=== PATIENT | male | born 1995 | race Two or more races ===

== ENCOUNTER 2017-07-04 16:52 | Emergency (ER) | payer OTHER ==
[~2017-07-04] VITALS: Ht 177.8 cm; Wt 105.6 kg
[2017-07-04 17:10] VITALS: BP 119/77
[2017-07-04] MEDS ORDERED: KETOROLAC 30 MG/1 ML IM ONE (18:30)
[2017-07-04] MEDS ORDERED: METHOCARBAMOL 750 MG TABLET PO ONE (18:30)
[2017-07-04] MEDS ORDERED: KETOROLAC 30 MG/1 ML ONE (18:39)
[2017-07-04] MEDS ORDERED: METHOCARBAMOL 750 MG TABLET ONE (18:39)
== END 2017-07-04 18:57 | disposition home or self-care (01) ==
LOC: ED 18:50
DX: S39.012A Strain of muscle, fascia and tendon of lower back, initial encounter (principal); M54.42 Lumbago with sciatica, left side; X58.XXXA Exposure to other specified factors, initial encounter; Y93.89 Activity, other specified; Y92.89 Other specified places as the place of occurrence of the external cause; Y99.8 Other external cause status
CPT/HCPCS: 72110; 96372; 99284; J1885

== ENCOUNTER 2018-04-22 21:26 | Emergency (ER) | payer SELFPAY ==
[~2018-04-22] VITALS: Ht 177.8 cm; Wt 100.0 kg
[2018-04-22] MEDS ORDERED: ONDANSETRON ODT 4 MG PO ONE (21:30)
[2018-04-22] MEDS ORDERED: THIAMINE 100MG TABLET PO ONE (21:30)
[2018-04-22] MEDS ORDERED: SODIUM CHLORIDE 0.9% 1,000ML IVBOLUS ONE (21:30)
[2018-04-22] MEDS ORDERED: IBUP-1222 PO (21:40)
[2018-04-22] MEDS ORDERED: THIAMINE 100MG TABLET ONE (21:42)
[2018-04-22] MEDS ORDERED: ONDANSETRON ODT 4 MG ONE (21:43)
[2018-04-22 21:44] LABS: BASOPHILS # (AUTO) 0.04 x10^3/uL (0-0.1); BASOPHILS % (AUTO) 0 % (0-1); EOSINOPHILS # (AUTO) 0.08 x10^3/uL (0-0.4); EOSINOPHILS % (AUTO) 1 % (1-7); LYMPHOCYTES # (AUTO) 1.81 x10^3/uL (1-3.4); LYMPHOCYTES % (AUTO) 20 % (22-44); MD NO; MEAN CORPUSCULAR HEMOGLOBIN 29.9 pg (27.5-34.5); MEAN CORPUSCULAR HGB CONC 33.8 g/dL (33.2-36.2); MEAN CORPUSCULAR VOLUME 88.3 fL (81-97); MEAN PLATELET VOLUME 9.4 fL (7.4-10.4); MONOCYTES # (AUTO) 0.19 x10^3/uL (0.2-0.8); MONOCYTES % (AUTO) 2 % (2-9); NEUTROPHILS # (AUTO) 7.04 x10^3/uL (1.8-6.8); NEUTROPHILS % (AUTO) 77 % (42-75); PLATELET COUNT 200 x10^3/uL (130-400); RED BLOOD COUNT 4.76 x10^6/uL (4.38-5.82); RED CELL DISTRIBUTION WIDTH 13.5 % (9.4-14.8)
[2018-04-22 21:52] LABS: ALBUMIN 3.5 g/dL (3.4-5.0); ANION GAP 11 mmol/L (5-15); CALCIUM 7.7 mg/dL (8.5-10.1); CHLORIDE 110 mmol/L (98-107); CREATININE 0.71 mg/dL (0.7-1.3)
[2018-04-22 22:39] VITALS: BP 111/72
== END 2018-04-22 22:47 | disposition home or self-care (01) ==
LOC: ED 22:42
DX: F10.220 Alcohol dependence with intoxication, uncomplicated (principal); F17.210 Nicotine dependence, cigarettes, uncomplicated
CPT/HCPCS: 36415; 80048; 80307; 82040; 85025; 99284; J7030; Q0162

== ENCOUNTER 2018-12-30 02:22 | Emergency (ER) | payer OTHER ==
[~2018-12-30] VITALS: Ht 180.3 cm; Wt 105.0 kg
[~2018-12-30 02:22] MED LIST: IBUP-1222 PO
--- NOTE | 2018-12-30 02:45 | NUR ---
FIRST CONTACT WITH PT. PATIENT COMPLAINS OF SWELLING AND PAIN IN RIGHT ANKLE/ FOOT . FOR LAST 3 HOURS. PT'S AOX4. RESPS EVEN AND UNLABORED. BP/SPO2 MONITORS IN PLACE. CALL LIGHT WITHIN REACH. EDMD AT BEDSIDE TO EVALUATE AT THIS TIME.
[2018-12-30 02:59] LABS: BASOPHILS % (AUTO) 1 % (0-1); EOSINOPHILS # (AUTO) 0.19 x10^3/uL (0-0.4); EOSINOPHILS % (AUTO) 1 % (1-7); HCT (SEDRATE) 46.2 % (39.2-51.8); LYMPHOCYTES # (AUTO) 2.79 x10^3/uL (1-3.4); LYMPHOCYTES % (AUTO) 18 % (22-44); MD NO; MEAN CORPUSCULAR HEMOGLOBIN 29.7 pg (27.5-34.5); MEAN CORPUSCULAR HGB CONC 33.4 g/dL (33.2-36.2); MEAN CORPUSCULAR VOLUME 88.9 fL (81-97); MEAN PLATELET VOLUME 9.9 fL (7.4-10.4); MONOCYTES % (AUTO) 3 % (2-9); NEUTROPHILS # (AUTO) 12.27 x10^3/uL (1.8-6.8); NEUTROPHILS % (AUTO) 78 % (42-75); PLATELET COUNT 264 x10^3/uL (130-400); RED CELL DISTRIBUTION WIDTH 13.1 % (9.4-14.8)
[2018-12-30 03:11] LABS: ALANINE AMINOTRANSFERASE 51 U/L (12-78); ALBUMIN 4.2 g/dL (3.4-5.0); ANION GAP 8 mmol/L (5-15); CALCIUM 8.5 mg/dL (8.5-10.1); CHLORIDE 105 mmol/L (98-107)
[2018-12-30 03:13] LABS: ALKALINE PHOSPHATASE 115 U/L (45-117); BILIRUBIN,TOTAL 1.5 mg/dL (0.2-1.0); TOTAL PROTEIN 8.4 g/dL (6.4-8.2)
[2018-12-30] MEDS ORDERED: LORazepam 1MG TABLET ONE (03:25)
[2018-12-30] MEDS ORDERED: INDOMETHACIN 50 MG CAPSULE ONE (03:25)
[2018-12-30] MEDS ORDERED: HYDROcodone/APAP 5/325 TABLET ONE (03:25)
[2018-12-30] MEDS ORDERED: COLCHICINE 0.6 MG TABLET ONE (03:26)
--- NOTE | 2018-12-30 03:29 | NUR ---
PT MEDICATED PER EMAR. PT TOLERATED WELL. PT'S AOX4. RESPS EVEN AND UNLABORED.
[2018-12-30 03:30] VITALS: BP 129/67
[2018-12-30] MEDS ORDERED: LORazepam 2 MG/ML, 1ML IVPush ONE (03:30)
[2018-12-30] MEDS ORDERED: COLCHICINE 0.6 MG TABLET PO ONE (03:30)
[2018-12-30] MEDS ORDERED: HYDROcodone/APAP 5/325 TABLET PO ONE (03:30)
[2018-12-30] MEDS ORDERED: LORazepam 1MG TABLET PO ONE (03:30)
[2018-12-30] MEDS ORDERED: INDOMETHACIN 50 MG CAPSULE PO ONE (03:30)
--- NOTE | 2018-12-30 04:38 | NUR ---
PT GIVEN DC INSTRUCTIONS AND SCRIPTS. PT EDUCATED REGARDING DC MEDICATIONS. PT'S AOX4. RESPS EVEN AND UNLABORED. PT WHEELED TO DC. NO ACUTE DISTRESS AT DC.
== END 2018-12-30 04:39 ==
LOC: ED 04:33
DX: M25.571 Pain in right ankle and joints of right foot (principal); M13.171 Monoarthritis, not elsewhere classified, right ankle and foot; M10.071 Idiopathic gout, right ankle and foot; F17.200 Nicotine dependence, unspecified, uncomplicated
CPT/HCPCS: 36415; 80053; 80307; 84550; 85025; 85651; 99284